=== PATIENT | male | born 2000 ===

== ENCOUNTER 2024-12-03 18:01 | Emergency (ER) | payer OTHER, SELFPAY ==
[2024-12-03 18:08] VITALS: BP 134/84; PULSE 110; RESP 18; TEMP 37.2; O2SAT 97; BMI 28.6
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
== END 2024-12-03 19:58 | disposition home or self-care (01) ==
LOC: ED 12-04 21:21
PROVIDERS: Emergency Provider Emergency Medicine Emergency Medical Services
DX: S51.812A Laceration without foreign body of left forearm, initial encounter (principal); V43.52XA Car driver injured in collision with other type car in traffic accident, initial encounter
CPT/HCPCS: 12002; 12001; 99283; 99284